=== PATIENT | female | born 1995 | race Caucasian/White ===

== ENCOUNTER 2022-10-27 16:52 | Emergency (ER) | payer OTHER ==
[~2022-10-27] VITALS: Ht 154.9 cm; Wt 98.0 kg
[2022-10-27 17:07] VITALS: BP 127/72; PULSE 116; RESP 20; TEMP 98.3; O2SAT 99
[2022-10-27 17:42] LABS: BASOPHILS # (AUTO) 0.1 K/uL (0.00-0.22); BASOPHILS % (AUTO) 0.7 % (0.0-2.0); EOSINOPHILS # (AUTO) 0.4 K/uL (0-0.4); EOSINOPHILS % (AUTO) 3.6 % (0.0-4.0); HEMATOCRIT 39.8 % (36-48); HEMOGLOBIN 13.4 g/dL (12.0-16.0); LYMPHOCYTES # (AUTO) 2.8 K/uL (2.5-16.5); LYMPHOCYTES % (AUTO) 27.1 % (20.5-51.1); MEAN CORPUSCULAR HEMOGLOBIN 28 pg (27-31); MEAN CORPUSCULAR HGB CONC 34 g/dL (33-37); MEAN CORPUSCULAR VOLUME 83.2 fL (80-94); MONOCYTES # (AUTO) 0.6 K/uL (0.8-1.0); MONOCYTES % (AUTO) 6.3 % (1.7-9.3); NEUTROPHILS # (AUTO) 6.4 K/uL (1.8-7.7); NEUTROPHILS % (AUTO) 62.3 % (42.2-75.2); PLATELET COUNT (AUTO) 273 K/uL (140-450); RED BLOOD CELL COUNT(AUTO) 4.78 MIL/uL (4.20-5.40); RED CELL DISTRIBUTION WIDTH 13.8 % (11.6-13.7); WHITE BLOOD COUNT (AUTO) 10.2 K/uL (4.8-10.8)
[2022-10-27 17:50] LABS: APPEARANCE,URINE CLOUDY (CLEAR); BILIRUBIN,URINE NEGATIVE (NEGATIVE); BLOOD, URINE 1+ (NEGATIVE); COLOR,URINE YELLOW (YELLOW); LEUKOCYTE ESTERASE ,URINE 2+ (NEGATIVE); NITRITE, URINE NEGATIVE (NEGATIVE); PROTEIN,URINE NEGATIVE (NEGATIVE); UGLUCOSE NEGATIVE (NEGATIVE); UROBILINOGEN,URINE 0.2 EU/dL (0.2 - 1)
[2022-10-27 17:58] LABS: ALBUMIN 3.8 g/dL (3.4-5.0); ANION GAP 13.1 (8-16); CALCIUM 8.7 mg/dL (8.5-10.1); CARBON DIOXIDE 27.3 mmol/L (21-32); CREATININE 0.8 mg/dL (0.6-1.3); POTASSIUM 3.4 mmol/L (3.5-5.1); TOTAL BILIRUBIN 0.3 mg/dL (0.0-1.0)
[2022-10-27 18:03] LABS: BACTERIA,URINE 10-30 (MOD) /HPF (None Seen); MUCUS,URINE 1+ /LPF (None Seen); SQUAMOUS EPITHELIAL CELL,UR 4-10 (MOD) /LPF (0-3 (FEW))
[2022-10-27] MEDS ORDERED: NACL 0.9% 1,000 ML IV ONE (18:10)
[2022-10-27] MEDS ORDERED: KETOROLAC 30 MG/ML VIAL IVP ONE (18:10)
[2022-10-27] MEDS ORDERED: cefTRIAXone 1,000 MG VIAL ONE (18:16)
[2022-10-27 19:03] LABS: LACTIC ACID 1.3 mmol/L (0.4-2.0)
[2022-10-27] MEDS ORDERED: CEPH-588 PO (19:48)
[2022-10-27] MEDS ORDERED: PYR100 PO (19:48)
[2022-10-27] MEDS ORDERED: ACET-10509 PO (19:48)
[2022-10-27 20:17] VITALS: BP 116/64; PULSE 98; RESP 17; TEMP 98.3; O2SAT 98
== END 2022-10-27 20:17 | disposition home or self-care (01) ==
LOC: MED 16:52
DX: N39.0 Urinary tract infection, site not specified (principal); K76.0 Fatty (change of) liver, not elsewhere classified; Z79.899 Other long term (current) drug therapy
CPT/HCPCS: 36415; 74177; 80053; 81001; 81025; 83605; 83690; 85025; 87040; 87086; 87491; 96365; 96375; 99285; J0696; J1885; J7030; Q9967